=== PATIENT | male | born 1990 | race Caucasian/White ===

== ENCOUNTER 2017-10-01 12:03 | Emergency (ER) | payer OTHER ==
[2017-10-01] MEDS: GENTAMICIN 0.3% OPHTH SOL 5 ML BTL OU (12:31)
== END 2017-10-01 13:26 | disposition home or self-care (01) ==
LOC: M ED 12:03
DX: Z77.098 Contact with and (suspected) exposure to other hazardous, chiefly nonmedicinal, chemicals (principal); F17.200 Nicotine dependence, unspecified, uncomplicated
CPT/HCPCS: 99283